=== PATIENT | male | born 1995 | race Two or more races ===

== ENCOUNTER 2024-08-14 16:31 | Emergency (ER) | payer OTHER, SELFPAY ==
[2024-08-14 16:41] VITALS: BP 147/71; PULSE 66; RESP 19; TEMP 36.9; O2SAT 98
[2024-08-14 16:43] VITALS: BMI 25.0
[2024-08-14] MEDS: DIPHTH,PERTUSS(ACELL),TET VAC 0.5 ML VIAL IMi (17:00)
[2024-08-14 18:11] LABS: HIV (1&2) Antibody Rapid Non-Reactive
[2024-08-14 18:19] LABS: Hepatitis B Surface Ab NonReact(Not Immune) (Immune); Hepatitis C Antibody Non Reactive (Non React)
--- NOTE | 2024-08-14 18:19 | PD.EDADULT ---
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 stating that he was working today and was accidentally injured by a needle he reports that the internal audit consultant he was working with accidentally scraped him with a needle he does not believe that he was directly injected with a needle rather he believes it was scraped over the finger Limitations: no limitations Review of Systems Review of Systems Systems Reviewed: All systems reviewed, normal except as documented Constitutional Constitutional: Reports system reviewed and no additional complaints, except as documented, Denies fever(s) and Denies headache(s) Eyes Eyes: Reports system reviewed and no additional complaints, except as documented and Denies blurry vision ENT Ears, Nose, Mouth, and Throat: Reports system reviewed and no additional complaints, except as documented, Denies headache(s), Denies nasal congestion and Denies nasal discharge Cardiovascular Cardiovascular: Reports system reviewed and no additional complaints, except as documented, Denies chest pain and Denies dyspnea Respiratory Respiratory: Reports system reviewed and no additional complaints, except as documented, Denies chest congestion, Denies cough and Denies dyspnea Gastrointestinal Gastrointestinal: Reports system reviewed and no additional complaints, except as documented and Denies abdominal pain Integumentary/Breasts Skin/Breast: Reports system reviewed and no additional complaints, except as documented, Denies rash and Reports wounds (Abrasion left index finger) Neurologic Neurologic: Reports system reviewed and no additional complaints, except as documented, Reports as per HPI and Denies headache(s) Past Medical History Social History SMOKING STATUS: Never smoker ED Exam General Limitations: Present no limitations General appearance: Present alert and in no apparent distress Head Head exam: Present atraumatic Eye Eye exam: Present normal appearance, PERRL and EOMI ENT ENT exam: Present normal exam, normal oropharynx and mucous membranes moist Neck Neck exam: Present normal inspection, full ROM and trachea midline Chest Chest inspection: Present normal inspection and symmetric chest wall rise Respiratory Respiratory exam: Present normal lung sounds bilaterally Cardiovascular Cardiovascular exam: Present regular rate, normal rhythm and normal heart sounds Abdominal Exam Abdominal exam: Present soft and normal bowel sounds Extremities Exam Extremities exam: Present full ROM, tenderness and other (Left index finger abrasion) Back Exam Back exam: Present normal inspection and full ROM Neurological Exam Neurological exam: Present alert, oriented X3 and CN II-XII intact Psychiatric Psychiatric exam: Present normal affect and normal mood Skin Skin exam: Present warm, dry and other (Injury left fourth digit) Course Quality Measures none Orders Category Date Time Status HIV (1&2) Antibody Rapid Stat Lab 08/14/24 17:01 Completed Hepatitis B Surface Ab Stat Lab 08/14/24 17:01 Received Hepatitis C Antibody Stat Lab 08/14/24 17:01 Received Tet,Diphth,Pertuss(Acell)-Tdap [Boostrix Vacc] Med 08/14/24 16:54 Discontinued 0.5 ml IMI .ONCE ONE Vital Signs Vital signs: Vital Signs Temperature 98.5 F 08/14/24 16:41 Pulse Rate 66 08/14/24 16:41 Respiratory Rate 19 08/14/24 16:41 Blood Pressure 147/71 H 08/14/24 16:41 Pulse Oximetry (%) 98 08/14/24 16:41 Oxygen Delivery Method Room Air 08/14/24 16:41 O2 saturation 98% room air within normal limits MDM Patient data External records reviewed:: [facility] previous records Clinical information provided by:: patient Social determinants that could affect healthcare access:: none Patient has the following chronic illnesses:: None How is presenting disease/condition affected by chronic disease/condition?: no chronic disease Evaluation data The following diagnostics were reviewed and interpreted by me:: lab results and other (specify) (N/A) Lab and/or radiology exams considered but not ordered:: Ordered Interpretation Summary: Ordered Medications Medications considered but not ordered:: Given Medication administrations:: Medication Administration History Discontinued Medications Diphtheria/Tetanus/Acell Pertussis (Diphth,Pertuss(Acell),Tet Vac 0.5 Ml Vial) 0.5 ml IMi .ONCE ONE Stop: 08/14/24 16:55 Last Admin: 08/14/24 17:00 Dose: 0.5 ml Documented By: OA Given Consultations Consultation(s) initiated? (list below): No Diagnosis Differential Diagnosis ED Complaint MDM: Laceration, abrasion, work-related injury Most likely diagnosis given after review of the tests above:: Abrasion Admission Indicated Admission indicated?: not indicated Explain why admission is indicated or not indicated:: no criteria Admission Request Was there a request for admission?: No Disposition Plan Disposition Plan: Discharge Discharge Attestation Discharge Attestation: The patient and all family members were given an opportunity to ask questions and understood the discharge instructions. Discharge instructions specifically effects, indications for sooner follow up or return to the emergency department, and the expected course of current diagnosis. 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 stating that he was working today and was accidentally injured by a needle he reports that the internal audit consultant he was working with accidentally scraped him with a needle he does not believe that he was directly injected with a needle rather he believes it was scraped over the finger Lab work obtained Tetanus updated Patient discharged home in no distress to follow-up with primary care doctor in the next 24 to 48 hours and for any worsening symptoms to return to the ER immediately Differential Diagnosis Differential Diagnosis: Laceration, abrasion, work-related injury Medical Records Medical records reviewed: Yes I reviewed the patient's medical records. Lab Data Lab results reviewed: Yes I reviewed the patient's lab results. Labs: Lab Results 08/14/24 Range/Units 17:01 HIV 1&2 Antibody Rapid Non-Reactive Discharge Plan Plan Patient Disposition: HOME (Self Care) Disposition Comment: Stable Problem List Clinical Impression: Needlestick injury accident, Work related injury Patient/Caregiver Discharge Instructions Additional Instructions: Please follow up with your Workmen's Compensation doctor in the next 24-48hrs for any worsening symptoms return here immediately Print Language: Moz[place]ican Stand Alone Forms: Janee Award Info., Patient Portal Info Letter Vaccines Vaccines Given During Stay: TDaP JAGDEEP/VIKKI Supervising Physician JAGDEEP/VIKKI Supervising Physician: Dr Armendariz
== END 2024-08-14 18:58 | disposition home or self-care (01) ==
LOC: SERX 17:19
PROVIDERS: Nurse Practitioner Primary Care; Emergency Provider Emergency Medicine
DX: S69.82XA Other specified injuries of left wrist, hand and finger(s), initial encounter (principal); W46.0XXA Contact with hypodermic needle, initial encounter; Y99.0 Civilian activity done for income or pay; Z23 Encounter for immunization
CPT/HCPCS: 36415; 86703; 86706; 86803; 90471; 90715; 99283